=== PATIENT | female | born 1960 | race Caucasian/White ===

== ENCOUNTER 2016-12-16 09:16 | Day surgery (SDC) | payer BC ==
[~2016-12-16] VITALS: Ht 157.5 cm; Wt 57.5 kg
[2016-12-16 10:04] VITALS: Ht 157.5 cm; Wt 57.5 kg
[2016-12-16 10:40] VITALS: BP 123/66; PULSE 52; RESP 18
[2016-12-16] MEDS ORDERED: MIDAZOLAM 1 MG/ML 2 ML INJ ONE (11:17)
[2016-12-16] MEDS ORDERED: FENTAnyl 50 MCG/ML VIAL ONE (11:17)
--- NOTE | 2016-12-16 11:47 | GILP ---
DATE OF PROCEDURE: 12/16/2016 NAME OF PROCEDURES: 1. Esophagogastroduodenoscopy and biopsy. 2. Colonoscopy. SURGEON: Jael Ruiz MD PREOPERATIVE DIAGNOSES: 1. Abdominal pain. 2. Screening colonoscopy. POSTOPERATIVE DIAGNOSES: 1. Hiatal hernia. 2. Gastroesophageal reflux disease. 3. Gastritis with erosions. 4. Gastric mucosal biopsies were taken for Helicobacter pylori test. 5. Small gastric polyps. 6. Colonoscopy all the way to the cecum. 7. Internal hemorrhoids. 8. No colon neoplasm was identified. INDICATION FOR THE PROCEDURE: Ms. Aye Herrera is a 56-year-old female patient who had upper abdomin al pain, not responding to therapy. She also needed a screening colonoscopy. The procedures and possible complications were well explained to the patient. The patient understoo d and consented to the procedure. DESCRIPTION OF PROCEDURE: Under the influence of fentanyl and Versed, the gastroscope was carefully introduced into the esophagus and under direct vision, it was advanced to the stomach and through t he pylorus into the duodenal bulb and descending duodenum. FINDINGS: ESOPHAGUS: The patient had a hiatal hernia and gastroesophageal reflux disease. STOMACH: She had gastritis with erosions. Gastric mucosal biopsies were taken for H. pylori test. DUODENUM: Normal. The colonoscope was carefully introduced in the rectum and under direct vision, it was advanced all the way to the cecum. FINDINGS: The patient had internal hemorrhoids. No colon neoplasm was identified. She tolerated the procedures very well and there was no complication from the procedures. At the en d of the procedures, she was awake with stable vital signs and she was discharged home to the care o f her family. IMPRESSION: Please see postoperative diagnoses. PLAN: 1. Nexium 24HR p.o. q. a.m. 2. Await H. pylori test report. 3. Next screening colonoscopy in 10 years. Dictated By: JAEL RUIZ MD GD/NTS Conf#: [id number] DID#: [id number] CC: JAEL RUIZ MD;*EndCC*
== END 2016-12-16 15:22 | disposition home or self-care (01) ==
LOC: GIL 09:16
PROVIDERS: ATTEND Internal Medicine Gastroenterology
DX: Z12.11 Encounter for screening for malignant neoplasm of colon (principal); K44.9 Diaphragmatic hernia without obstruction or gangrene; K21.9 Gastro-esophageal reflux disease without esophagitis; K29.60 Other gastritis without bleeding; K31.7 Polyp of stomach and duodenum; K64.8 Other hemorrhoids
CPT/HCPCS: 43239; 45378; 87081; J2250; J3010; Z7610; 88305

== ENCOUNTER 2017-08-28 17:38 | Emergency (ER) | END 2017-08-29 00:30 | disposition home or self-care (01) ==

== ENCOUNTER 2019-01-20 12:33 | Emergency (ER) | payer BC ==
[~2019-01-20] VITALS: Ht 157.5 cm; Wt 62.0 kg
[~2019-01-20 12:33] MED LIST: ESOM20CA PO; FOLI-49 PO; ONDA4TAB14 PO; SUCR1TAB56 PO
[2019-01-20 12:51] VITALS: Ht 157.5 cm; Wt 62.0 kg
--- NOTE | 2019-01-20 13:54 | ERD ---
ER Documentation Chief Complaint Chief Complaint c/o SOB, feeling chest tightness when breathing and feeling cold HPI 58-year-old female presents with complaint of tightness in her chest for the past 4 months. States that when her window was open and cold air comes in she feels cold in her chest. Patient denies any chest pain, shortness of breath, cough, hemoptysis, recent surgeries, malignancy, leg pain or swelling, fevers, chills. ROS All systems reviewed and are negative except as per history of present illness. Medications Home Meds Active Scripts Lorazepam* (Lorazepam*) 1 Mg Tablet, 1 MG PO Q8H PRN for ANXIETY, #10 TAB Prov:JR PRETTY 01/20/19 Ondansetron (Ondansetron Odt) 4 Mg Tab.rapdis, 4 MG PO Q6H PRN for NAUSEA AND/OR VOMITING, #10 TAB Prov:JR KEEN 08/29/17 Sucralfate* (Carafate*) 1 Gm Tab, 1 GM PO QID, #30 TAB Prov:JR KEEN 08/29/17 Reported Medications Esomeprazole Mag Trihydrate (Nexium) 20 Mg Capsule.dr, 20 MG PO DAILY, #30 CAP 08/28/17 Folic Acid* (Folic Acid*) 1 Mg Tablet, 1 MG PO DAILY, TAB 08/28/17 Allergies Allergies: Coded Allergies: No Known Allergy (Unverified , 08/28/17) PMhx/Soc History of Surgery: No Anesthesia Reaction: No Hx Neurological Disorder: No Hx Respiratory Disorders: No Hx Cardiac Disorders: No Hx Psychiatric Problems: No Hx Miscellaneous Medical Probl: No (GALLSTONES) Hx Alcohol Use: No Hx Substance Use: No Hx Tobacco Use: No FmHx Family History: No diabetes, No coronary disease, No other Physical Exam Vitals Vital Signs Date Temp Pulse Resp B/P (MAP) Pulse Ox O2 O2 Flow FiO2 Time Delivery Rate 01/20/19 65 16 125/67 99 Room Air 16:16 (86) 01/20/19 98.7 73 24 169/70 100 12:51 (103) Physical Exam Const: No acute distress patient appears to be anxious. And is difficult to redirect. Head: Atraumatic Eyes: Normal Conjunctiva ENT: Normal External Ears, Nose and Mouth. Neck: Full range of motion. No meningismus. Resp: Clear to auscultation bilaterally Cardio: Regular rate and rhythm, no murmurs Abd: Soft, non tender, non distended. Normal bowel sounds Skin: No petechiae or rashes Back: No midline or flank tenderness Ext: No cyanosis, or edema Neur: Awake and alert Psych: Normal Mood and Affect Result Diagram: 01/20/19 1437 01/20/19 1437 Results 24 hrs Laboratory Tests Test 01/20/19 14:37 White Blood Count 7.5 10^3/ul Red Blood Count 4.62 10^6/ul Hemoglobin 13.6 g/dl Hematocrit 40.6 % Mean Corpuscular Volume 87.9 fl Mean Corpuscular Hemoglobin 29.4 pg Mean Corpuscular Hemoglobin Concent 33.5 g/dl Red Cell Distribution Width 13.3 % Platelet Count 315 10^3/UL Mean Platelet Volume 9.7 fl Immature Granulocytes % 0.400 % Neutrophils % 68.7 % Lymphocytes % 23.0 % Monocytes % 6.2 % Eosinophils % 1.2 % Basophils % 0.5 % Nucleated Red Blood Cells % 0.0 /100WBC Immature Granulocytes # 0.030 10^3/ul Neutrophils # 5.1 10^3/ul Lymphocytes # 1.7 10^3/ul Monocytes # 0.5 10^3/ul Eosinophils # 0.1 10^3/ul Basophils # 0.0 10^3/ul Nucleated Red Blood Cells # 0.0 10^3/ul Sodium Level 144 mmol/L Potassium Level 3.7 mmol/L Chloride Level 113 mmol/L Carbon Dioxide Level 20 mmol/L Anion Gap 11 Blood Urea Nitrogen 13 mg/dl Creatinine 0.71 mg/dl Est Glomerular Filtrat Rate mL/min > 60 mL/min Glucose Level 107 mg/dl Calcium Level 10.4 mg/dl Total Bilirubin 0.5 mg/dl Direct Bilirubin 0.00 mg/dl Indirect Bilirubin 0.5 mg/dl Aspartate Amino Transf (AST/SGOT) 30 IU/L Alanine Aminotransferase (ALT/SGPT) 35 IU/L Alkaline Phosphatase 84 IU/L Troponin I 0.013 ng/ml Total Protein 8.2 g/dl Albumin 4.6 g/dl Globulin 3.60 g/dl Albumin/Globulin Ratio 1.27 Thyroid Stimulating Hormone (TSH) 3.340 MIU/L Current Medications Medications Dose Sig/Leanna Start Time Status Last (Trade) Ordered Route PRN Stop Time Admin Dose Reason Admin Lorazepam 1 mg ONCE ONCE 01/20/19 DC (Ativan) PO 14:00 01/20/19 14:01 Procedures/MDM EKG: Rate/Rhythm: Normal Sinus Rhythm QRS, ST, T-waves: No changes consistent w/ acute ischemia Impression: No evidence of ischemia or arrhythmia Chest X-ray 1V Interpreted by me: Soft Tissue: No acute abnormalities Bones: No acute abnormalities Mediastinum/Cardiac Silhouette/Lungs: No acute abnormalities MDM: EKG was reviewed by Dr. Dhillon and Dr. ibarra. Both stated that no further work-up is necessary aside from troponin which was within normal limits. I have low suspicion for acute coronary syndrome, pulmonary embolism, aortic dissection, AAA, pneumothorax, esophageal rupture, pericarditis, myocarditis, or pneumonia based on EKG, imaging, labs, patient history and exam. Patient most likely has anxiety. Patient was given lorazepam in the ER and symptoms resolved. Patient discharged with short course of lorazepam as well advised to follow-up with primary. At this time, patient is stable for discharge and outpatient management. I have instructed the patient to follow-up with his/her primary care physician in 1-2 days. I have discussed with the patient the possibility of needing to see a specialist for further workup and imaging studies if symptoms persist. I have instructed the patient to promptly return to the ER for any new or worsening symptoms including but not limited to increased pain, fever, nausea, vomiting, weakness or LOC. The patient and/or family expressed understanding of and agreement with this plan. All questions were answered. Home care instructions were provided. Communication with patient both during the exam and instructions for discharge were performed with using a social insurance administrator . Patient gave verbal confirmation to the practitioner, through the social insurance administrator, that they understood everything that was being said to them. DISCLAIMER: Inadvertent spelling and grammatical errors are likely due to EHR/dictation software use and do not reflect on the overall quality of patient care. Also, please note that the electronic time recorded on this note does not necessarily reflect the actual time of the patient encounter. Departure Diagnosis: Primary Impression: Anxiety Condition: Stable JR PRETTY Jan 20, 2019 13:53
[2019-01-20] MEDS ORDERED: LORAZEPAM 1 MG TAB PO ONE (14:00)
[2019-01-20] MEDS ORDERED: LORA1TAB PO (14:47)
[2019-01-20 16:16] VITALS: BP 125/67; PULSE 65; RESP 16
== END 2019-01-20 16:16 | disposition home or self-care (01) ==
LOC: FTE 12:33
DX: F41.9 Anxiety disorder, unspecified (principal)
CPT/HCPCS: 71045; 80053; 84443; 84484; 85025; 93005